=== PATIENT | female | born 1980 | race Two or more races ===

== ENCOUNTER 2017-12-23 02:14 | Inpatient (IN) ==
[2017-12-23] MEDS ORDERED: Oxytocin 30 Units/500ml Premix 30 UNITS/500 ML BAG IV.SIG ONE ×2 (03:36→07:13)
[2017-12-23] MEDS ORDERED: fentaNYL Citrate Inj 100 MCG/2 ML Ampul IV.PUSH PRN ×2 (03:36)
[2017-12-23] MEDS ORDERED: Sodium Chlor 0.9% Inj 500 ML IV.SIG PRN (03:36)
[2017-12-23] MEDS ORDERED: Penicillin G Potassium Inj 5,000,000 UNIT in Sodium Chloride 0.9% Inj 100 ML IV.SIG ONE ×2 (03:36→05:00)
[2017-12-23] MEDS ORDERED: Naloxone Inj 0.4 MG/ML Vial IV.PUSH PRN (03:36)
[2017-12-23] MEDS ORDERED: Sod Chloride 0.9% Inj 1,000 ML IV.CONT PRN (03:36)
--- NOTE | 2017-12-23 03:36 | ED ---
History of Present Illness Primary Care Physician: Jeninfer Cooper MD Chief Complaint: LOF History of Present Illness: Pt is a 37y/o @ 37.0wks. She has PNC with Dr. Jeffries. She presents for ROM at 1am (clear fluid) and ctx which started thereafter. No VB. +FM. is c/b AMA, grandmultiparity, GBS+, A1GDM, and hypothyroidism. OBHx: SAB x2 ectopic x1 x3 Weeks Gestation:: 37 Para: 3 : 7 - Inpatient Certification I certify that the inpatient services were ordered in accordance with Medicare regulations governing the order. This includes certification that hospital inpatient services are reasonable and necessary and in the case of services not specified as inpatient-only under 42 CFR 419.22(n), that they are appropriately provided as inpatient services in accordance to with the 2-midnight benchmark under 43 CFR 412.3(e) Review of Systems All other systems reviewed negative except as stated in HPI PMFSH - Medical History Medical History: Medical History (Last Updated 12/23/17 @ 03:28 by Juvencio Dover MD) Hypothyroidism - Surgical History Surgical History: Surgical History (Last Updated 12/23/17 @ 03:28 by Juvencio Dover MD) History of salpingectomy - Social History I have reviewed the patient's Social History: Yes - Tobacco History Second Hand Smoke Exposure: No Tobacco Use In Past 30 Days: No Smoking Status: Never smoker - Alcohol History How Often Do You Have a Drink Containing Alcohol: Never - Substance Use History Substance History: No History of Abuse Medications and Allergies Active Medications: Active Medications Sodium Chloride (Ns Flush) 2 ml IV.FLUSH BID ALICJA Sodium Chloride (Ns Flush) 2 ml IV.FLUSH PRN PRN PRN Reason: FLUSH AFTER USING IV ACCESS Allergies Allergy/AdvReac Type Severity Reaction Status Date / Time No Known Allergies Allergy Verified 12/23/17 03:21 Home Medications Medication Instructions Recorded Confirmed Type PNV #[id number] 1 tab PO DAILY 12/23/17 12/23/17 History levothyroxine 50 mcg PO DAILY 12/23/17 12/23/17 History Exam Vital signs: Vital Signs 12/23/17 02:45 12/23/17 02:46 Temperature 98.6 F Pulse Rate 64 Respiratory Rate 18 Blood Pressure 107/60 Intake & Output 12/22/17 12/22/17 12/23/17 06:59 18:59 06:59 Weight 73.936 kg Narrative: General: well developed, well nourished, no acute distress HEENT: normocephalic atraumatic, extraocular movements intact, neck supple Abdomen: soft, gravid, nontender, nondistended Uterus: fundus term Extremities: full range of motion Skin: normal coloration, no rashes, no suspicious skin lesions noted Neurologic: cranial nerves 2-12 grossly intact, normal muscle tone, normal gait Psychiatric: normal mood and affect, appropriate FHTs: 125-130, +accels, subtle early decels with some ctx, moderate variability Watchung: ctx q4-6m Cvx: /-3 Assessment and Plan - Diagnosis (1) 39 weeks gestation of Code(s): Z3A.39 - 39 weeks gestation of Status: Acute (2) PROM with onset of labor within 24 hours of rupture Code(s): O42.00 - Premature rupture of membranes, onset of labor within 24 hours of rupture, unspecified weeks of gestation Status: Acute (3) GBS (group B Streptococcus carrier), +RV culture, currently Code(s): O99.820 - Streptococcus B carrier state complicating Status : Acute (4) AMA (advanced maternal age) multigravida 35+ Code(s): O09.529 - Supervision of elderly multigravida, unspecified trimester Status: Acute (5) White classification A1 gestational diabetes mellitus (GDM), diet controlled Code(s): O24.410 - Gestational diabetes mellitus in , diet controlled Status: Acute (6) Hypothyroid Code(s): E03.9 - Hypothyroidism, unspecified Status: Acute (7) Grand multipara in labor Code(s): O09.40 - Supervision of with grand multiparity, unspecified trimester Status: Acute - Plan 37y/o @ 37.0wks with PROM, GBS+, grandmultiparity, AMA, A1GDM, hypothyroidism. -- amnisure + -- cvx /-3 -- admit to L&D -- CLD, CEFM/toco, epidural/figueroa PRN -- pitocin augmentation PRN Dr. Jeffries (classification counselor) notified of pt status and agrees with POC. He will assume care of the pt. Courtesy orders placed. Discharge Plan - Discharge Disposition Patient Disposition: 30 Still Patient - Physicians Team ED Provider: Dhaval Jeffries Primary Care Provider: Jennifer Cooper
[2017-12-23] MEDS ORDERED: Oxytocin 30 Units/500ml Premix 30 UNITS/500 ML BAG IV.SIG PRN ×2 (03:37→12:13)
[2017-12-23] MEDS ORDERED: Citric Acid/Sodium Citrate Liq 30 ML UDC PO SCH (03:45)
[2017-12-23 04:18] LABS: Baso # (Auto) 0.1 th/mm3 (0.0-0.2); Baso % (Auto) 0.9 % (0.0-2.0); Eos # (Auto) 0.2 th/mm3 (0.0-0.4); Eos % (Auto) 2.4 % (0.0-4.0); Hematocrit 36.1 % (35.0-46.0); Hemoglobin 12.8 gm/dL (11.6-15.3); Lymph % (Auto) 27.5 % (9.0-44.0); Mean Corpuscular HGB Conc 35.5 % (32.0-36.0); Mean Corpuscular Hemoglobin 31.2 pg (27.0-34.0); Mean Platelet Volume 10.6 fL (7.0-11.0); Mono # (Auto) 0.5 th/mm3 (0.0-0.9); Mono % (Auto) 6.4 % (0.0-8.0); Neut # (Auto) 4.6 th/mm3 (1.8-7.7); Neut % (Auto) 62.8 % (16.0-70.0); Platelet Count 144 th/mm3 (150-450); Red Cell Distribution Width 13.8 % (11.6-17.2); White Blood Count 7.3 th/mm3 (4.0-11.0)
[2017-12-23 04:34] LABS: Bilirubin,Urine Negative (Negative); Clarity,Urine Clear (Clear); Color,Urine Yellow (Yellw/Straw); Glucose,Urine (UA) Negative (Negative); Leukocyte Esterase,Urine Negative (Negative); Nitrite,Urine Negative (Negative); Specific Gravity,Urine 1.005 (1.002-1.035); Squamous Epithelial Cell,Urine 1 /hpf (0-5)
[2017-12-23 04:36] LABS: Amphetamine Urine With Conf Neg (Neg); Benzodiazepine Urine With Conf Neg (Neg)
--- NOTE | 2017-12-23 06:18 | MH ---
cc: Dhaval Jeffries MD DATE OF ADMISSION: 12/23/2017 ADMITTING DIAGNOSES: 1. at 37 weeks. 2. AMA. 3. Gestational diabetes. 4. Rupture of membranes. 5. Positive GBS. HISTORY OF PRESENT ILLNESS: A 37-year-old white female, para 3-0-3-3, LMP of 04/08/2017, EDC of 01/13/2018. Her course has been benign. She was diagnosed to have gestational diabetes and has had good dietary control for positive GBS. She awoke at 1 a.m. today with spontaneous rupture of membranes, clear fluid, and came in for evaluation. She is now admitted for delivery. PAST SURGICAL HISTORY: Laparoscopic cholecystectomy in 2007, ectopic in 2004. MEDICATIONS: Vitamins, Synthroid. ALLERGIES: NONE. TRANSFUSIONS: None. OBSTETRIC HISTORY: Three vaginal deliveries, 2 spontaneous abortions, 1 ectopic. SOCIAL HISTORY: She is . She is a teacher at [employer]. Alcohol, tobacco and drugs are none. FAMILY HISTORY: Noncontributory. PHYSICAL EXAMINATION: GENERAL: She is a well-nourished, well-developed, female. VITAL SIGNS: Stable. HEENT: Normal. CHEST: Clear. HEART: Regular rate. BREASTS: Symmetrical. ABDOMEN: Gravid. EFW is about 2800 grams. PELVIC: Cervix by the hospitalist is 2 cm, 50 vertex, ruptured. PLAN: She is now admitted for delivery. We will plan penicillin prophylaxis and Pitocin augmentation. MD ANGEL Solomon/marlene/lashay , 04:32 AM , 04:38 AM ALYSE
[2017-12-23] MEDS ORDERED: Morphine Sulfate PF Inj 5 MG/10 ML Ampul ONE (07:07)
[2017-12-23] MEDS ORDERED: Simethicone 80 MG Chew Tablet PO PRN (07:13)
[2017-12-23] MEDS ORDERED: Senna/Docusate Sodium 8.6/50 MG Tablet PO PRN (07:13)
[2017-12-23] MEDS ORDERED: Phenylephrine/NS 1000 MCG/10ML Syringe IV.PUSH ONE (07:20)
[2017-12-23] MEDS ORDERED: Penicillin G Potassium Inj 2,500,000 UNIT in Sodium Chlor 0.9% Inj 100 ML IV.SIG SCH (07:36)
[2017-12-23] MEDS ORDERED: Oxytocin 30 Units/500ml Premix 30 UNITS/500 ML BAG ONE (09:19)
[2017-12-23] MEDS ORDERED: Ketorolac Inj 30 MG/ML (IVP) Vial IV.PUSH PRN (10:02)
[2017-12-23] MEDS: Penicillin G Potassium Inj 2,500,000 UNIT in Sodium Chlor 0.9% Inj 100 ML IV.SIG SCH ×4 (10:33→23:25)
--- NOTE | 2017-12-23 13:55 | MP ---
cc: Dhaval Jeffries MD DATE OF OPERATION: 12/23/2017 PREOPERATIVE DIAGNOSES: 1. at 37 weeks with premature rupture of membranes. 2. Active labor. 3. Advanced maternal age. 4. Gestational diabetes. 5. Single footling breech. POSTOPERATIVE DIAGNOSES: 1. at 37 weeks with premature rupture of membranes. 2. Active labor. 3. Advanced maternal age. 4. Gestational diabetes. 5. Single footling breech. 6. Delivery. PROCEDURE PERFORMED: Primary low transverse section. ANESTHESIA: Spinal. SURGEON: Dhaval Jeffries MD COMMUNITY SUPPORT SPECIALIST: Dee Cruz ESTIMATED BLOOD LOSS: 750 mL FLUIDS: 2 liters crystalloid. OBJECTIVE FINDINGS: Following induction of adequate spinal anesthesia, the patient was prepped and draped supine on the operating table, left lateral tilt position in the usual sterile fashion, with the bladder being drained by Baires catheterization. The abdomen was opened through a Pfannenstiel incision using a knife to cut down the skin to the fascia. The fascia was opened transversely, stripped from the muscles, rectus muscle split in the midline and the peritoneum opened sharply without incident. The bladder flap was taken down sharply and retracted inferiorly. The lower uterine segment was incised transversely with a knife and extended with blunt dissection. The baby was in a single footling breech. With spray dry operator guidance, the feet were brought through the incision and then with fundal pressure, delivery progressed to the level of the shoulder blades. Additional room was needed for the head, so the spray dry operator's fingers were inserted to protect the baby and the uterine incision extended with bandage scissors. This allowed the head to slip out. We also suctioned the mouth. The cord clamped and cut and the baby passed to the awaiting team, a viable vigorous female, Apgars 5 and 9, weight 6 pounds 2 ounces. Cord blood send for typing. The placenta was manually removed. Uterus was wiped cleaned with laps. The uterus was exteriorized and then closed in 2 layers with a running suture, first with a running locking 2-0 Vicryl, second with a running imbricating stitch of 0 Vicryl. Posterior inspection was normal tubes and ovaries, uterus. The uterus was placed in the cavity. Irrigation performed. A few areas of bleeding along the suture line were controlled with running locking stitches of 0 chromic. The bladder flap was now cosred with Jd placed beneath the flap for added hemostasis. All laps were removed. Counts were correct. Anterior peritoneum closed with a running 2-0 Vicryl, the fascia with a running locking stitch of 0 Vicryl corner midline tied, subcutaneous 3-0 Vicryl, the skin with a running subcuticular 3-0 Monocryl. Dermabond applied. All counts were correct and the patient was awakened and taken to the recovery room in good condition. MD ANGEL Solomon/ct , 01:17 PM , 01:25 PM MTDD
[2017-12-23] MEDS ORDERED: Zolpidem Tartrate 5 MG Tablet PO PRN (21:00)
[2017-12-24 06:33] LABS: Baso % (Auto) 0.3 % (0.0-2.0); Eos # (Auto) 0.1 th/mm3 (0.0-0.4); Eos % (Auto) 0.4 % (0.0-4.0); Hematocrit 34.1 % (35.0-46.0); Hemoglobin 11.7 gm/dL (11.6-15.3); Lymph # (Auto) 2.2 th/mm3 (1.0-4.8); Lymph % (Auto) 15.1 % (9.0-44.0); Mean Corpuscular HGB Conc 34.3 % (32.0-36.0); Mean Corpuscular Hemoglobin 30.8 pg (27.0-34.0); Mean Corpuscular Volume 89.9 fL (80.0-100.0); Mean Platelet Volume 9.3 fL (7.0-11.0); Mono # (Auto) 0.7 th/mm3 (0.0-0.9); Mono % (Auto) 4.5 % (0.0-8.0); Neut # (Auto) 11.6 th/mm3 (1.8-7.7); Neut % (Auto) 79.7 % (16.0-70.0); Platelet Count 182 th/mm3 (150-450); Red Blood Count 3.79 mil/mm3 (4.00-5.30); Red Cell Distribution Width 14.4 % (11.6-17.2); White Blood Count 14.6 th/mm3 (4.0-11.0)
[2017-12-24] MEDS: Penicillin G Potassium Inj 2,500,000 UNIT in Sodium Chlor 0.9% Inj 100 ML IV.SIG SCH ×5 (11:17→21:56)
[2017-12-24] MEDS ORDERED: Measles/Mumps/Rubella Vaccine Inj 0.5 ML Vial SQ ONE (16:00)
[2017-12-24] MEDS ORDERED: Diphtheria/Tetanus/Pertussis Vaccine Inj 0.5 ML Syringe IM ONE (16:00)
[2017-12-24 19:44] VITALS: RESP 18
[2017-12-25] MEDS: Penicillin G Potassium Inj 2,500,000 UNIT in Sodium Chlor 0.9% Inj 100 ML IV.SIG SCH ×3 (04:38→08:48)
[2017-12-25 08:24] VITALS: BP 99/63; PULSE 70; TEMP 98.6
--- NOTE | 2017-12-25 15:30 | MD ---
cc: Dhaval Jeffries MD DATE OF DISCHARGE: 12/25/2017 ADMITTING DIAGNOSES: 1. at 37 weeks with spontaneous rupture of membranes. 2. Advanced maternal age of 37. 3. Gestational diabetes. 4. Footling breech presentation. DISCHARGE DIAGNOSES: 1. at 37 weeks with spontaneous rupture of membranes. 2. Advanced maternal age of 37. 3. Gestational diabetes. 4. Footling breech presentation. 5. Delivery. PROCEDURE PERFORMED: Primary low transverse section on 12/23/2017. HISTORY OF PRESENT ILLNESS: This is a 37-year-old , female, para 3-0-4-3, had a LMP of 04/08/2017, EDC of 01/13/2018. She had been followed me throughout the . Her course was benign with a good diabetic control via diet; GBS was positive. She had spontaneous rupture of membranes on the pants presser automatic of 12/23/2017, was admitted for delivery. Initially was about 2 cm by hospitalist exam and felt to be vertex. She was begun on penicillin prophylaxis and Pitocin induction. She progressed to 5 cm-6 cm when I my exam confirmed a footling breech. She was prepared for immediate section under spinal anesthesia and had a viable vigorous female. , did well. Discharged home in excellent condition on 12/25/2017. She was . Her pre and post postop labs were normal. She was advised NPV, light activity, no driving, return to see me in 1 week. She was given prescription for Percocet 5; one p.o. every 4 hours p.r.n., #20. MD ANGEL Solomon/jim , 10:00 AM , 11:08 AM
== END 2017-12-25 11:55 | disposition home or self-care (01) ==
LOC: HOBED 02:14 → H2E 03:07 → H1EA 09:56
PROVIDERS: ADMIT Obstetrics & Gynecology; ATTEND Obstetrics & Gynecology